=== PATIENT | female | born 1960 | race Caucasian/White ===

== ENCOUNTER 2017-08-28 10:45 | Day surgery (SDC) | payer OTHER ==
[~2017-08-28] VITALS: Ht 170.2 cm; Wt 131.5 kg
[2017-08-28] MEDS ORDERED: VITD1000 PO (11:40)
[2017-08-28] MEDS ORDERED: METO-485 PO (11:40)
[2017-08-28] MEDS ORDERED: ALBU0.0912 IH (11:40)
[2017-08-28] MEDS ORDERED: OMEP20TC12 PO (11:40)
[2017-08-28] MEDS ORDERED: ALLO100T21 PO (11:40)
[2017-08-28] MEDS ORDERED: MECL-272 PO (11:40)
[2017-08-28] MEDS ORDERED: MONT10TA35 PO (11:40)
[2017-08-28] MEDS ORDERED: MIDAZOLAM 2 MG/2 ML VIAL ONE ×2 (12:33→12:51)
[2017-08-28] MEDS ORDERED: fentaNYL 0.05 MG/ML VIAL ONE (12:33)
[2017-08-28] MEDS ORDERED: MIDAZOLAM 2 MG/2 ML VIAL IVP ONE ×2 (12:55→13:20)
== END 2017-08-28 14:12 | disposition home or self-care (01) ==
LOC: MDS 10:45 → MMU 10:46 → MDS 14:12
PROVIDERS: ATTEND Internal Medicine Gastroenterology
DX: K31.89 Other diseases of stomach and duodenum (principal); E66.01 Morbid (severe) obesity due to excess calories; M19.90 Unspecified osteoarthritis, unspecified site; Z98.51 Tubal ligation status; Z90.710 Acquired absence of both cervix and uterus; Z90.49 Acquired absence of other specified parts of digestive tract; Z96.651 Presence of right artificial knee joint; Z68.42 Body mass index [BMI] 45.0-49.9, adult
CPT/HCPCS: 36415; 43239; 86677; J2250; J3010